=== PATIENT | male | born 1995 | race Caucasian/White ===

== ENCOUNTER 2019-07-15 15:29 | Emergency (ER) | payer OTHER, MEDICAID ==
[~2019-07-15] VITALS: Ht 182.9 cm; Wt 73.0 kg
[2019-07-15] MEDS ORDERED: BACITRACIN ZINC OINT UDPKT TOP ONE (17:00)
[2019-07-15] MEDS ORDERED: LIDOCAINE HCL/PF 1% 10 MG/ML 5ML VIAL IJ ONE (17:00)
[2019-07-15 17:23] VITALS: BP 121/71
== END 2019-07-15 17:30 | disposition home or self-care (01) ==
LOC: ER 15:29
DX: M27.2 Inflammatory conditions of jaws (principal); F12.90 Cannabis use, unspecified, uncomplicated
CPT/HCPCS: 10060; 99283; J3490

== ENCOUNTER 2019-07-24 15:16 | Emergency (ER) | payer OTHER, MEDICAID ==
[~2019-07-24] VITALS: Ht 182.9 cm; Wt 71.0 kg
[2019-07-24 15:58] VITALS: BP 114/49
== END 2019-07-24 17:04 | disposition left against medical advice (07) ==
LOC: ER 15:16
DX: L02.01 Cutaneous abscess of face (principal); F12.90 Cannabis use, unspecified, uncomplicated
CPT/HCPCS: 99281